=== PATIENT | male | born 1935 | race Caucasian/White ===

== ENCOUNTER 2020-07-02 15:40 | Emergency (ER) | payer MEDICARE, SELFPAY ==
--- NOTE | ~2020-07-02 | XR_ITS ---
EXAMINATION: XR humerus RT DATE: 07/02/2020 16:43 INDICATION: Right upper pain. TECHNIQUE: 2 views of right humerus were obtained. COMPARISON: None. FINDINGS: Bone alignment is normal. No fracture. There is mild osteoarthritis of glenohumeral joint a nd severe osteoarthritis of acromioclavicular joint. IMPRESSION: 1. Polyarticular osteoarthritis. Reviewed, dictated and finalized at location A.
--- NOTE | ~2020-07-02 | XR_ITS ---
EXAMINATION: XR elbow RT min 3V DATE: 07/02/2020 18:53 INDICATION: Right elbow pain. Fall. TECHNIQUE: 4 views of right elbow were obtained. COMPARISON: None. FINDINGS: Bone alignment is normal. No fracture. Joint spaces are normal. There is a small elbow join t effusion. There are enthesophytes at medial and lateral humeral epicondyles. There is posterior sof t tissue swelling. IMPRESSION: 1. Small elbow joint effusion. No fracture identified. Reviewed, dictated and finalized at location A.
[2020-07-02 16:23] VITALS: BP 148/77; PULSE 94; RESP 20; TEMP 37.1; O2SAT 99
[2020-07-02 18:19] VITALS: BP 139/88; PULSE 78; RESP 18; O2SAT 99
--- NOTE | 2020-07-02 19:09 | ED.GENADULT ---
HPI - General Adult General Chief complaint: Fall Stated complaint: FELL- R ARM PAIN Time Seen by Provider: 07/02/20 18:09 Source: patient Mode of arrival: ambulatory Limitations: no limitations History of Present Illness HPI narrative: Patient is an 85-year-old male who presents with family for evaluation of injuries sustained from a ground-level fall today patient was taking out the trash when he lost his balance falling to the ground patient sustained abrasion to the upper lip as well as to the right side of the face next to the eye patient denies any loss of consciousness syncope. Patient notes slight swelling and minimal discomfort of the right elbow distal humerus. Patient denies neck or back pain. Patient denies other injuries or complaints has not taken anything for pain. 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 Essential (primary) hypertension Mixed hyperlipidemia Primary osteoarthritis involving multiple joints Family History Family History (Updated 10/27/15 @ 23:19 by DOCTOR UNKNOWN) Sibling Family history of multiple sclerosis Patient's sister is Father Family history of diabetes mellitus in first degree relative Family history of type 2 diabetes mellitus Mother Patient's mother is Family history of heart disease in male family member before age 55 Other Diabetes mellitus Family history of allergic disorder Family history of kidney disease Family history of liver disease Hypertension Social History Social History Smoking status: Former smoker Alcohol intake: never Gender identity (if verbalized by the patient): Male Exam Narrative: Exam Narrative: GENERAL: Well-appearing, well-nourished, and in no acute distress. HEAD: Normocephalic, small abrasion to the right lateral orbital region as well as the upper lip EYES: PERRLA and EOMI. ENT: Nares clear, no rhinorrhea or epistaxis. Mucous membranes moist. Oropharynx without tonsillar hypertrophy exudate or other lesions. NECK: Supple. No adenopathy or masses. CHEST: Clear to auscultation. No respiratory distress. No wheezes rales or rhonchi HEART: Regular rate and rhythm. No murmur heard. Normal peripheral pulses. EXTREMITIES: Normal range of motion. No edema. Swelling of the posterior right elbow with minimal tenderness remainder of extremity nontender. No cervical thoracic or lumbar tenderness SKIN: Warm, dry, no rash. NEURO: No focal deficits. Alert and oriented x3. Cranial nerves II through XII grossly intact PSYCH: Normal mood and affect. Course Course Emergency Course: Patient in the room no distress aware of case findings treatment plan and diagnosis agreeing to follow-up as instructed or to return if symptoms worsen or concerns Vital Signs Vital signs: Vital Signs Temperature 98.8 F 07/02/20 16:23 Pulse Rate 94 07/02/20 16:23 Respiratory Rate 20 07/02/20 16:23 Blood Pressure 148/77 H 07/02/20 16:23 Pulse Oximetry 99 07/02/20 16:23 Temperature 98.8 F 07/02/20 16:23 Pulse Rate 78 07/02/20 18:19 Respiratory Rate 18 07/02/20 18:19 Blood Pressure 139/88 07/02/20 18:19 Pulse Oximetry 99 07/02/20 18:19 Medical Decision Making MDM Narrative Medical decision making narrative
== END 2020-07-02 19:25 | disposition home or self-care (01) ==
PROVIDERS: Emergency Provider Emergency Medicine; PCP Internal Medicine
DX: S50.01XA Contusion of right elbow, initial encounter (principal); S00.211A Abrasion of right eyelid and periocular area, initial encounter; S00.511A Abrasion of lip, initial encounter; I10 Essential (primary) hypertension; E78.2 Mixed hyperlipidemia; N40.0 Benign prostatic hyperplasia without lower urinary tract symptoms; M19.011 Primary osteoarthritis, right shoulder; Z87.891 Personal history of nicotine dependence; W18.39XA Other fall on same level, initial encounter
CPT/HCPCS: 73060; 73080; 99283

== ENCOUNTER → 2021-03-07 02:30 | Outpatient (CLI) | payer MEDICARE, SELFPAY ==
[2021-03-07 20:26] LABS: SARS-CoV-2 RNA PCR Negative
== END ==
PROVIDERS: PCP Internal Medicine; Visit Provider Internal Medicine
DX: R68.89 Other general symptoms and signs (principal); Z20.822 Contact with and (suspected) exposure to COVID-19
CPT/HCPCS: C9803; U0003; U0005

== ENCOUNTER 2022-04-03 08:15 | Outpatient (CLI) | payer MEDICARE, SELFPAY ==
--- NOTE | ~2022-04-03 | XR_ITS ---
Right Knee Technique: AP, lateral, and sunrise views were obtained. Clinical History: Pain Findings: No fracture or dislocation is seen. Osseous alignment is anatomic. Minimal tricompartmental degenerative spurring noted. Vascular calcifications noted. No joint effusion is seen. Impression: Minimal degenerative change, as above. No fracture or dislocation. Reviewed, dictated and finalized at location . ICATOR SPRAYER Impression: Minimal degenerative change, as above. No fracture or dislocation.
== END 2022-04-03 08:16 | disposition home or self-care (01) ==
PROVIDERS: PCP Internal Medicine; Visit Provider Nurse Practitioner Family
DX: M25.561 Pain in right knee (principal)
CPT/HCPCS: 73562

== ENCOUNTER 2022-04-23 07:05 | Emergency (ER) | payer MEDICARE, SELFPAY ==
--- NOTE | ~2022-04-23 | US_ITS ---
EXAMINATION: US venous doppler [facility] DATE: 04/23/2022 09:50 INDICATION: Right lower limb pain and bilateral lower limb swelling TECHNIQUE: Grayscale ultrasound images without and with compression and Doppler ultrasound images of the bilateral lower extremity veins were obtained. COMPARISON: None. FINDINGS: The visualized portions of right common femoral vein, profunda (deep) femoral vein, femoral vein, pop liteal vein, posterior tibial veins, gastrocnemius vein and greater saphenous vein outflow are patent . The visualized portions of left common femoral vein, profunda femoral vein, femoral vein, popliteal v ein, posterior tibial veins, gastrocnemius vein and greater saphenous vein outflow are patent. IMPRESSION: 1. No deep venous thrombosis in either lower limb. Reviewed, dictated and finalized at location L. EHOLD MANAGER
--- NOTE | ~2022-04-23 | XR_ITS ---
Left Hand Technique: PA, oblique, and lateral views were obtained. Clinical History: Pain and swelling, polymyalgia rheumatica Findings: No acute fracture or dislocation is seen. Osseous alignment is anatomic. There is mild dege nerative change at the first CMC joint. Suggestion of possible clubbing of the distal fingers. Impression: Mild degenerative change at the first CMC joint. Suggestion of clubbing of the distal fingers. Correlate with physical exam and clinical history. Reviewed, dictated and finalized at location . EQUIPMENT REPAIRER Impression: Mild degenerative change at the first CMC joint. Suggestion of clubbing of the distal fingers. Correlate with physical exam and clinical history.
--- NOTE | ~2022-04-23 | XR_ITS ---
EXAMINATION: XR hand RT min 3V DATE: 04/23/2022 09:38 INDICATION: Right hand pain and swelling. Polymyalgia rheumatica. TECHNIQUE: 3 views of right hand were obtained. COMPARISON: Right hand radiographs 01/22/2011 FINDINGS: Again seen is scapholunate dissociation. There is ulnar subluxation of second proximal phal anx with respect to the metacarpal. There is radial subluxation of third distal phalanx with respect to the middle phalanx. No fracture. There is severe osteoarthritis of radiolunate joint and moderate osteoarthritis of radioscaphoid joint. There is mild osteoarthritis of triscaphe joint and first carp ometacarpal joint. There is severe osteoarthritis of first-third metacarpophalangeal joints. There is osteoarthritis of most of the interphalangeal joints, severe at third distal interphalangeal joint a nd moderate at fourth distal interphalangeal joint and fifth proximal and distal interphalangeal join ts. There is soft tissue swelling of the hand and fingers. IMPRESSION: 1. Polyarticular osteoarthritis. No specific evidence of inflammatory arthropathy. 2. Scapholunate dissociation. Reviewed, dictated and finalized at location A. ER HELPER IMPRESSION: 1. Polyarticular osteoarthritis. No specific evidence of inflammatory arthropat hy. 2. Scapholunate dissociation.
[2022-04-23 07:26] VITALS: BP 153/79; PULSE 72; RESP 15; TEMP 36.5; O2SAT 96
--- NOTE | 2022-04-23 09:25 | ED.EXTPRO ---
HPI - Extremity Problem General Chief complaint: Extremity Problem,Nontraumatic Stated complaint: hands swelled up, knee is swelled up x 3 weeks Time Seen by Provider: 04/23/22 08:55 Source: patient and old records reviewed Mode of arrival: ambulatory Limitations: no limitations History of Present Illness HPI Narrative: Patient is an 86 y/o male who presents to the ED with c/o swelling to his hands and legs. Patient reports having swelling in his bilateral hands and bilateral lower extremities, worse in R leg, for the past 3 weeks. He states the swelling is present nearly every morning and last throughout the day, but does seem mildly improved by the end of the day. He complains of some intermittent pain in his hands and right knee, as well as intermittent redness and warmth to his hands. He has been taking Tylenol with some relief of the pain. He saw his primary care doctor at the start of symptoms and had a negative x-ray of his right knee. Records reviewed. Patient denies any chest pain, difficulty breathing, calf pain, history of heart failure or gout, recent injury, fevers. Patient notes a Hx of polymyalgia rheumatica 30 years ago. Related Data Home Medications Medication Instructions Recorded Confirmed cholecalciferol (vitamin D3) 10 400 unit PO DAILY 02/05/19 04/02/22 mcg (400 unit) capsule multivitamin 1 tablet PO DAILY 03/16/21 04/02/22 tamsulosin 0.4 mg capsule 0.4 mg PO DAILY 03/16/21 04/02/22 vit cap PO 03/16/21 04/02/22 C,E,zinc,Vg-fwyph-3-lutein-zeaxanthin 250 mg-2.5 mg-0.5 mg capsule Allergies Allergy/AdvReac Type Severity Reaction Status Date / Time ibuprofen Allergy Unknown Inside of Verified 04/23/22 07:39 mouth turn red Review of Systems Review of Systems: CONSTITUTIONAL: Denies fever, chills, or sweats. CARDIOVASCULAR: Denies chest pain. RESPIRATORY: Denies dyspnea. GASTROINTESTINAL: Denies abdominal pain, nausea, vomiting, or diarrhea. SKIN: See HPI. MUSCULOSKELETAL: See HPI. NEUROLOGIC: Denies headache, numbness, or weakness. 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 Surgical History Surgical History No pertinent past surgical history Family History Family History Sibling Family history of multiple sclerosis Patient's sister is Father Family history of diabetes mellitus in first degree relative Family history of type 2 diabetes mellitus Mother Patient's mother is Family history of heart disease in male family member before age 55 Other Diabetes mellitus Family history of allergic disorder Family history of kidney disease Family history of liver disease Hypertension Social History Social History Smoking packs per day: 1 Smoking cigarettes per day: 20.0 Years smoked: 4 Smoking pack-years: 4.00 Smoking status: Former smoker Second hand tobacco smoke exposure: No Smoking end date: 03/31/1957 Alcohol intake: never Substance use: never Substance use type: does not use Lack of Transportation: YES Lack of Food: Never True Current Housing: I Have Housing Concerned About Future Housing: No Difficulty Paying Gas/Electric Bills: No Difficulty Paying for Meds: No Currently Unemployed: No Education: High School Diploma/GED Difficulty w/ Childcare or Family Care: No Gender identity (if verbalized by the patient): Male Exam Narrative: GENERAL: Elderly, well-nourished, non-toxic, in no acute distress.
[2022-04-23 10:21] LABS: Basophils Absolute Auto 0.1 K/mm3 (0.0-0.1); Basophils Percent Auto 0.4 % (0.2-1.2); Eosinophils Absolute Auto 0.2 K/mm3 (0-0.3); Eosinophils Percent Auto 1.2 % (0-4.4); Hematocrit 39.4 % (42.0-52.0); Hemoglobin 12.5 g/dL (14.0-18.0); Immature Granulocyte Absolute 0.06 K/mm3 (0.00-0.031); Immature Granulocyte Percent A 0.4 % (0-0.5); Lymphocytes Absolute Auto 1.07 K/mm3 (0.9-3.2); Lymphocytes Percent Auto 7.4 % (18.3-44.2); Mean Corpuscular HGB Conc 31.7 g/dl (32-36); Mean Corpuscular Hemoglobin 30.9 pg (26-34); Mean Corpuscular Volume 97.5 fl (80-100); Mean Platelet Volume 9.8 fl (7.4-10.4); Monocytes Absolute Auto 0.9 K/mm3 (0.1-0.6); Monocytes Percent Auto 6.2 % (2.6-8.5); Neutrophils Absolute Auto 12.2 K/mm3 (1.3-6.7); Neutrophils Percent Auto 84.4 % (45.5-73.1); Platelet Count Result 225 k/mm3 (150-375); Red Blood Count 4.04 M/mm3 (4.6-6.20); Red Cell Distribution Width 15.3 % (11.5-14.5); White Blood Count 14.5 K/mm3 (4.5-10.0)
[2022-04-23 10:23] LABS: Appearance Urine Clear (Clear); Bilirubin Urine Negative (Negative); Blood Urine Negative (Negative); Color Urine Yellow (Yellow); Glucose Urine UA Negative (Negative); Ketones Urine Trace mg/dL (Negative); Leukocyte Esterase Ur Negative LEU/UL (Negative); Nitrate Urine Negative (Negative); Protein Urine 1+ mg/dL (Negative); Specific Grav Ur 1.025 (1.001-1.035); Urobilinogen Urine 0.2 mg/dL (<2.0); pH Urine 5.5 (5.0-9.0)
[2022-04-23 10:24] LABS: Alanine Aminotransferase 40 U/L (6-50); Albumin Level 3.8 g/dL (3.5-5.1); Alkaline Phosphatase 98 U/L (38-126); Anion Gap 8 mmol/L (8-16); Aspartate Amino Transferase 43 U/L (17-59); Bilirubin,Total 0.6 mg/dL (0.2-1.3); Blood Urea Nitrogen 31 mg/dL (9-20); CRP 1.7 mg/dL (<1.0); Calcium 8.7 mg/dL (8.4-10.2); Carbon Dioxide 25 mmol/L (22-30); Chloride 109 mmol/L (98-107); Estimated CRCL calculation 31 ml/min; Estimated Glomerular Filt Rate 52; Glucose 87 mg/dL (65-110); Potassium 4.5 mmol/L (3.4-5.0); Sodium 142 mmol/L (137-145)
[2022-04-23 10:30] LABS: Bacteria Urine Trace /hpf; Mucus Urine Rare /lpf; NT Pro B Type Natriuretic Pept 453 pg/mL (19.9-100); Squamous Epithelial Cell Urine Rare /hpf (Few); WBC Urine 0-3 /hpf
[2022-04-23 10:33] LABS: Add Urine Microscopic? YES
[2022-04-23 12:11] LABS: Erythrocyte Sedimentation Rate 57 mm/hr (0-20)
== END 2022-04-23 14:11 | disposition home or self-care (01) ==
PROVIDERS: Emergency Provider Physician Assistant; PCP Internal Medicine
DX: M79.89 Other specified soft tissue disorders (principal); M19.031 Primary osteoarthritis, right wrist; M18.9 Osteoarthritis of first carpometacarpal joint, unspecified; M19.041 Primary osteoarthritis, right hand; E78.2 Mixed hyperlipidemia; M35.3 Polymyalgia rheumatica; N40.0 Benign prostatic hyperplasia without lower urinary tract symptoms; Z86.16 Personal history of COVID-19; Z87.891 Personal history of nicotine dependence; M24.232 Disorder of ligament, left wrist
CPT/HCPCS: 36415; 73130; 80053; 81001; 83880; 85025; 85652; 86140; 93970; 99284

== ENCOUNTER 2022-09-12 14:14 | Outpatient (CLI) | payer MEDICARE, SELFPAY ==
[2022-09-12 14:43] LABS: Hematocrit 35.3 % (42.0-52.0); Hemoglobin 11.2 g/dL (14.0-18.0); Mean Corpuscular HGB Conc 31.7 g/dl (32-36); Mean Corpuscular Hemoglobin 30.4 pg (26-34); Mean Corpuscular Volume 95.9 fl (80-100); Mean Platelet Volume 9.4 fl (7.4-10.4); Platelet Count Result 270 k/mm3 (150-375); Red Blood Count 3.68 M/mm3 (4.6-6.20); Red Cell Distribution Width 15.7 % (11.5-14.5); White Blood Count 14.5 K/mm3 (4.5-10.0)
[2022-09-12 14:48] LABS: Appearance Urine Clear (Clear); Bacteria Urine None Seen /hpf; Bilirubin Urine Negative (Negative); Blood Urine Negative (Negative); Color Urine Dark Yellow (Yellow); Glucose Urine UA Negative (Negative); Ketones Urine Trace mg/dL (Negative); Leukocyte Esterase Ur Trace LEU/UL (Negative); Nitrate Urine Negative (Negative); Protein Urine 1+ mg/dL (Negative); RBC Urine 0-2 /hpf (0-2); Specific Grav Ur 1.026 (1.001-1.035); Squamous Epithelial Cell Urine Occasional /hpf (Few); WBC Urine 0-5 /hpf; pH Urine 5.5 (5.0-9.0)
[2022-09-12 15:07] LABS: Alanine Aminotransferase 35 U/L (6-50); Albumin Level 3.8 g/dL (3.5-5.1); Alkaline Phosphatase 82 U/L (38-126); Anion Gap 6 mmol/L (8-16); Aspartate Amino Transferase 39 U/L (17-59); Bilirubin,Total 0.4 mg/dL (0.2-1.3); Blood Urea Nitrogen 36 mg/dL (9-20); CRP 4.1 mg/dL (<1.0); Calcium 8.4 mg/dL (8.4-10.2); Carbon Dioxide 28 mmol/L (22-30); Chloride 110 mmol/L (98-107); Estimated Glomerular Filt Rate 48; Glucose 116 mg/dL (65-110); Potassium 4.3 mmol/L (3.4-5.0); Sodium 144 mmol/L (137-145)
[2022-09-12 15:57] LABS: Add Urine Microscopic? YES
[2022-09-12 16:48] LABS: Erythrocyte Sedimentation Rate 63 mm/hr (0-20)
[2022-09-18 20:37] LABS: Hexagonal Phase Confirm Negative (Negative); Lupus dRVVT Confirmation Negative (Negative); Lupus dRVVT Screen 51 sec (<=45); PTT-LA Screen 41 sec (<=40)
[2022-09-23 14:26] LABS: Lupus dRVVT Additional Testing Yes
== END 2022-09-12 14:15 | disposition home or self-care (01) ==
LOC: ANHLAB 14:19
PROVIDERS: PCP Family Medicine; Visit Provider Internal Medicine
DX: R06.02 Shortness of breath (principal); M19.90 Unspecified osteoarthritis, unspecified site; R89.9 Unspecified abnormal finding in specimens from other organs, systems and tissues
CPT/HCPCS: 36415; 80053; 81001; 85027; 85597; 85598; 85613; 85652; 85730; 86140

== ENCOUNTER 2022-09-19 08:24 | Outpatient (CLI) | payer MEDICARE, SELFPAY ==
--- NOTE | ~2022-09-19 | XR_ITS ---
XR chest 2V 09/19/2022 10:41 Indication: Shortness of breath Procedure: PA and lateral views of the chest Comparison: 11/30/2012 Findings: Borderline heart size. There is a hiatal hernia. No focal air space disease, pulmonary mary jo a, pleural effusion or suspected pneumothorax. Moderate thoracic spondylosis with accentuated kyphosi s of the lower thoracic spine. There is dextroscoliosis of the thoracic spine. Calcified granuloma le ft upper thorax. Impression: 1: No acute cardiopulmonary disease. Reviewed, dictated and finalized at location L. Impression: 1: No acute cardiopulmonary disease.
--- NOTE | ~2022-09-19 | MR_ITS ---
MRI of the right hand CLINICAL HISTORY: Rheumatoid arthritis TECHNIQUE: Coronal T1-weighted and T2 fat-sat images, axial T1-weighted, T1 fat-sat, and T2 fat-sat i mages, and sagittal T1-weighted and T2 fat-sat images were performed. Following intravenous administr ation of 15 cc MultiHance gadolinium, T1-weighted fat-sat imaging was performed in the axial, coronal , and sagittal planes. FINDINGS: Exam is suboptimal as the fat suppression failed on the fat-suppressed sequences. There are probable scattered erosive changes throughout the carpal bones in the wrist, probable exten sive enhancing synovitis of the wrist. There is advanced osteoarthritic change of the first metacarpo phalangeal joint. There are mild osteoarthritic changes of the second and third metacarpophalangeal j oints and first carpal metacarpal joint. Flexor and extensor tendons are intact. Probable tenosynovitis of the flexor pollicis longus tendon a nd the flexor digitorum profundus tendons in the palm/wrist region. There is dorsal subcutaneous soft tissue edema in the hand. There is probable widening is stable inte rval to 7 mm, compatible with underlying scapholunate ligament tear. IMPRESSION: Suboptimal exam due to failure of fat suppression. Findings consistent with inflammatory/erosive arthropathy throughout the wrist, consistent with histo ry of rheumatoid arthritis. Advanced osteoarthritis of the first metacarpophalangeal joint. Additional mild degenerative osteoart hritic changes, as detailed above. Tenosynovitis of the flexor pollicis longus tendon and flexor digitorum profundus tendons, as detaile d above. Widening of the scapholunate interval is consistent with underlying scapholunate ligament tear. Reviewed, dictated and finalized at [facility]. IMPRESSION: Suboptimal exam due to failure of fat suppression. Findings consistent with inflammatory/erosive arthropathy throughout the wrist, consistent with history of rheumatoid arthritis. Advanced osteoarthritis of the first metacarpophalangeal joint. Additional mild degenerative osteoarthritic changes, as detailed above. Tenosynovitis of the flexor pollicis longus tendon and flexor digitorum profund us tendons, as detailed above. Widening of the scapholunate interval is consistent with underlying scapholunat e ligament tear.
--- NOTE | ~2022-09-19 | MR_ITS ---
MRI of the left hand CLINICAL HISTORY: Rheumatoid arthritis TECHNIQUE: Coronal T1-weighted and T2 fat-sat images, axial T1-weighted, T1 fat-sat, and T2 fat-sat i mages, and sagittal T1-weighted and T2 fat-sat images were performed. Following intravenous administr ation of 15 cc MultiHance gadolinium, T1-weighted fat-sat imaging was performed in the axial, coronal , and sagittal planes. FINDINGS: Multiple erosions are noted in the carpal bones, especially involving the scaphoid, capitat e, hamate, and triquetrum. There is patchy marrow edema throughout the bones of the wrist on fluid se nsitive sequences. There is also probable focal erosive change at the distal radius. There is moderate to advanced osteoarthritis of the first carpometacarpal joint. There is joint space narrowing and bony productive change at the second metacarpophalangeal joint, without definite erosi ons, most compatible with moderate to advanced osteoarthritis. Remaining joint spaces and the hand itself appear intact. Remaining bone marrow signals are unremarka ble. There is subcutaneous soft tissue edema throughout the dorsum of the hand, nonspecific. No focal flui d collection evident. Flexor and extensor tendons appear intact. There is fluid distention of the fle xor pollicis longus tendons and flexor digitorum profundus tendons in the palm, compatible with tenos ynovitis. There is additional probable tenosynovitis of the carpal tunnel region, with focal fluid, p artially imaged. Postcontrast images demonstrate extensive enhancing synovitis throughout the wrist. There is widening of the scapholunate interval to 7 mm, suggestive of underlying scapholunate ligamen t tear. IMPRESSION: Inflammatory/erosive arthropathy changes throughout the wrist, consistent with rheumatoid arthritis. Please see details above. Severe osteoarthritis of the first carpal metacarpal joint, and moderate to advanced osteoarthritis o f the second MCP joint. Tenosynovitis involving the flexor pollicis longus tendon and flexor digitorum profundus tendons, as detailed above. Widening of the scapholunate interval is consistent with underlying scapholunate ligament tear. Reviewed, dictated and finalized at location M. IMPRESSION: Inflammatory/erosive arthropathy changes throughout the wrist, consistent with rheumatoid arthritis. Please see details above. Severe osteoarthritis of the first carpal metacarpal joint, and moderate to adv anced osteoarthritis of the second MCP joint. Tenosynovitis involving the flexor pollicis longus tendon and flexor digitorum profundus tendons, as detailed above. Widening of the scapholunate interval is consistent with underlying scapholunat e ligament tear.
== END 2022-09-19 08:25 | disposition home or self-care (01) ==
PROVIDERS: PCP Family Medicine; Visit Provider Internal Medicine
DX: R06.02 Shortness of breath (principal); M06.041 Rheumatoid arthritis without rheumatoid factor, right hand; M06.042 Rheumatoid arthritis without rheumatoid factor, left hand; M19.90 Unspecified osteoarthritis, unspecified site; M19.041 Primary osteoarthritis, right hand; M19.042 Primary osteoarthritis, left hand
CPT/HCPCS: 71046; 73220; A9577

== ENCOUNTER 2022-10-14 10:38 | Outpatient (CLI) | payer MEDICARE, SELFPAY ==
[2022-10-14 12:02] LABS: Hepatitis B Surface Antigen Negative (Negative)
[2022-10-14 12:19] LABS: Hepatitis B Surface Anti Res Negative; Hepatitis C Virus Antibody Negative (Negative)
[2022-10-16 10:49] LABS: NIL 0.01 IU/mL; Quantiferon TB Plus, 1T NEGATIVE (NEGATIVE); TB2-NIL 0.02 IU/mL
== END 2022-10-14 10:39 | disposition home or self-care (01) ==
PROVIDERS: PCP Family Medicine; Visit Provider Internal Medicine
DX: M05.79 Rheumatoid arthritis with rheumatoid factor of multiple sites without organ or systems involvement (principal)
CPT/HCPCS: 36415; 86480; 86706; 86803; 87340

== ENCOUNTER 2022-10-23 13:53 | Outpatient (CLI) | payer MEDICARE, SELFPAY ==
[2022-10-23 15:15] LABS: Hematocrit 34.5 % (42.0-52.0); Hemoglobin 10.8 g/dL (14.0-18.0); Mean Corpuscular HGB Conc 31.3 g/dl (32-36); Mean Corpuscular Hemoglobin 29.7 pg (26-34); Mean Corpuscular Volume 94.8 fl (80-100); Mean Platelet Volume 9.7 fl (7.4-10.4); Platelet Count Result 271 k/mm3 (150-375); Red Blood Count 3.64 M/mm3 (4.6-6.20); Red Cell Distribution Width 16.3 % (11.5-14.5); White Blood Count 15.9 K/mm3 (4.5-10.0)
[2022-10-23 15:54] LABS: Iron 47 ug/dL (49-181)
[2022-10-23 16:03] LABS: Percent Iron Saturation 15 % (20-50)
== END 2022-10-23 13:54 | disposition home or self-care (01) ==
PROVIDERS: PCP Family Medicine; Visit Provider Family Medicine
DX: D64.9 Anemia, unspecified (principal); H35.3190 Nonexudative age-related macular degeneration, unspecified eye, stage unspecified; I10 Essential (primary) hypertension; M05.79 Rheumatoid arthritis with rheumatoid factor of multiple sites without organ or systems involvement; R06.02 Shortness of breath; R31.21 Asymptomatic microscopic hematuria; E78.5 Hyperlipidemia, unspecified
CPT/HCPCS: 36415; 82607; 83540; 83550; 84443; 85027

== ENCOUNTER 2022-10-24 07:55 | Outpatient (CLI) | payer MEDICARE, SELFPAY ==
[2022-10-24 08:44] LABS: IFOB Positive Control Positive; Immunochemical Fecal Occult Bl Positive (N)
== END 2022-10-24 07:56 | disposition home or self-care (01) ==
LOC: ANHLAB 07:58
PROVIDERS: PCP Family Medicine; Visit Provider Family Medicine
DX: R31.21 Asymptomatic microscopic hematuria (principal)
CPT/HCPCS: 82274

== ENCOUNTER 2022-10-29 12:05 | Emergency (ER) | payer MEDICARE, SELFPAY ==
[2022-10-29] VITALS (12 sets, daily range): BP systolic 111–151; BP diastolic 69–79; PULSE 58–96; RESP 17–27; TEMP 36.7–36.9; O2SAT 97–100
--- NOTE | ~2022-10-29 | XR_ITS ---
EXAMINATION: XR chest 2V DATE: 10/29/2022 12:32 INDICATION: Arrhythmia. Shortness of breath. TECHNIQUE: Frontal and lateral views of the chest were obtained. COMPARISON: Chest 2 views 09/19/2022, CT abdomen and pelvis 04/08/2013 FINDINGS: A calcified left lung nodule is consistent with old granulomatous disease. There is mild at electasis versus scarring at the lung bases. No pleural effusion or pneumothorax. Cardiomegaly is not ed. Surgical clips in the right upper quadrant are likely from cholecystectomy. IMPRESSION: 1. Mild atelectasis versus scarring at the lung bases. 2. Cardiomegaly. Reviewed, dictated and finalized at location A.
--- NOTE | ~2022-10-29 | US_ITS ---
EXAMINATION: US venous doppler [facility] DATE: 10/29/2022 14:03 INDICATION: swelling, dyspnea . TECHNIQUE: Grayscale images without and with compression and Doppler images of the bilateral lower ex tremity veins were obtained. COMPARISON: 04/23/2022 FINDINGS: The right common femoral vein, profunda (deep) femoral vein, femoral vein, popliteal vein, peroneal v ein, posterior tibial veins, gastrocnemius vein, and greater saphenous vein are patent. The left common femoral vein, profunda (deep) femoral vein, femoral vein, popliteal vein, peroneal v ein, posterior tibial veins, gastrocnemius vein, and greater saphenous vein are patent. IMPRESSION: 1. Patent bilateral lower extremity veins. No evidence of deep venous thrombosis. Reviewed, dictated and finalized at location K. IMPRESSION: 1. Patent bilateral lower extremity veins. No evidence of deep venous thrombos is.
--- NOTE | 2022-10-29 12:07 | ECG_ITS ---
Measurements Intervals [place] Rate: 82 P: [place]: 0 QRS: -29 QRSD: 117 T: 63 QT: 385 QTc: 450 Interpretive Statements NORMAL SINUS RHYTHM FIRST-DEGREE AV BLOCK RUN OF SVT NOTED BORDERLINE LEFT AXIS DEVIATION [QRS AXIS < -20] INCOMPLETE RIGHT BUNDLE BRANCH BLOCK [90+ ms QRS DURATION, TERMINAL R IN V1/V2, 40+ ms S IN I/aVL/V4/V5/V6] NONSPECIFIC T-WAVE ABNORMALITY ABNORMAL RHYTHM ECG NO PREVIOUS ECG AVAILABLE FOR COMPARISON Electronically Signed On 10-29-2022 13:52:43 CDT by Chula Esparza M.D.
[2022-10-29 12:32] LABS: Basophils Percent Auto 0.3 % (0.2-1.2); Eosinophils Absolute Auto 0.2 K/mm3 (0-0.3); Eosinophils Percent Auto 1.2 % (0-4.4); Hematocrit 32.4 % (42.0-52.0); Hemoglobin 10.2 g/dL (14.0-18.0); Immature Granulocyte Absolute 0.08 K/mm3 (0.00-0.031); Immature Granulocyte Percent A 0.5 % (0-0.5); Lymphocytes Absolute Auto 1.13 K/mm3 (0.9-3.2); Lymphocytes Percent Auto 7.7 % (18.3-44.2); Mean Corpuscular HGB Conc 31.5 g/dl (32-36); Mean Corpuscular Hemoglobin 29.2 pg (26-34); Mean Corpuscular Volume 92.8 fl (80-100); Mean Platelet Volume 9.5 fl (7.4-10.4); Monocytes Absolute Auto 1.1 K/mm3 (0.1-0.6); Monocytes Percent Auto 7.4 % (2.6-8.5); Neutrophils Absolute Auto 12.2 K/mm3 (1.3-6.7); Neutrophils Percent Auto 82.9 % (45.5-73.1); Platelet Count Result 237 k/mm3 (150-375); Red Blood Count 3.49 M/mm3 (4.6-6.20); Red Cell Distribution Width 16.8 % (11.5-14.5); White Blood Count 14.7 K/mm3 (4.5-10.0)
[2022-10-29 12:42] LABS: Alanine Aminotransferase 49 U/L (6-50); Albumin Level 3.6 g/dL (3.5-5.1); Alkaline Phosphatase 91 U/L (38-126); Anion Gap 7 mmol/L (8-16); Aspartate Amino Transferase 50 U/L (17-59); Bilirubin,Total 0.3 mg/dL (0.2-1.3); Blood Urea Nitrogen 40 mg/dL (9-20); Calcium 8.6 mg/dL (8.4-10.2); Carbon Dioxide 25 mmol/L (22-30); Chloride 110 mmol/L (98-107); Estimated CRCL calculation 27 ml/min; Estimated Glomerular Filt Rate 44; Glucose 96 mg/dL (65-110); INR 1.1; Lipase 55 U/L (23-300); Potassium 4.5 mmol/L (3.4-5.0); Prothrombin Time 14.7 Seconds (11.1-14.7); Sodium 142 mmol/L (137-145)
[2022-10-29 12:43] LABS: Partial Thromboplastin Time 34.5 SECONDS (22.3-36.8)
[2022-10-29] MEDS: ASPIRIN 81 MG CHEWABLE TABLET 324 MG PO (12:50)
[2022-10-29 12:53] LABS: Troponin I < 0.012 ng/mL (0.000-0.034)
--- NOTE | 2022-10-29 13:17 | ED.ARRPALP ---
HPI - Arrhythmia/Palpitations General Chief Complaint: Arrhythmia/Palpitations Stated Complaint: irregular heart rate Time Seen by Provider: 10/29/22 12:49 Source: patient Mode of arrival: ambulatory Limitations: no limitations History of Present Illness HPI narrative: This is a 87 year old male that presents to the ER for irregular heart rhythm. Reports he was about to get an infusion for his rheumatoid arthritis. The nurse noted his heart was beating irregular and they told him he should go to the ER. He has no known history of atrial fibrillation. He does report shortness of breath and weakness that has been ongoing for several months. Reports some lower extremity edema. Denies chest pain. Related Data Home Medications Medication Instructions Recorded Confirmed cholecalciferol (vitamin D3) 10 400 unit PO DAILY 02/05/19 09/12/22 mcg (400 unit) capsule multivitamin 1 tablet PO DAILY 03/16/21 09/12/22 tamsulosin 0.4 mg capsule 0.4 mg PO DAILY 03/16/21 09/12/22 Allergies Allergy/AdvReac Type Severity Reaction Status Date / Time ibuprofen Allergy Unknown Inside of Verified 10/29/22 12:50 mouth turn red Review of Systems Review of Systems: CONSTITUTIONAL: Denies fever CARDIOVASCULAR: Denies chest pain, palpitations, or edema. RESPIRATORY: Reports dyspnea. Denies cough NEUROLOGIC: Reports generalized weakness. 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 Shortness of breath Surgical History Surgical History No pertinent past surgical history Family History Family History Sibling Family history of multiple sclerosis Patient's sister is Father Family history of diabetes mellitus in first degree relative Family history of type 2 diabetes mellitus Mother Patient's mother is Family history of heart disease in male family member before age 55 Other Diabetes mellitus Family history of allergic disorder Family history of kidney disease Family history of liver disease Hypertension Social History Social History Smoking packs per day: 1 Smoking cigarettes per day: 20.0 Years smoked: 4 Smoking pack-years: 4.00 Smoking status: Former smoker Second hand tobacco smoke exposure: No Smoking end date: 03/31/1957 Alcohol intake: never Substance use: never Substance use type: does not use Lack of Transportation: YES Lack of Food: Never True Current Housing: I Have Housing Concerned About Future Housing: No Difficulty Paying Gas/Electric Bills: No Difficulty Paying for Meds: No Currently Unemployed: No Education: High School Diploma/GED Difficulty w/ Childcare or Family Care: No Living arrangements: with family Occupation/Education: retired Gender identity (if verbalized by the patient): Male Sexual Orientation (if Verbalized by the Patient): Straight or Heterosexual Exam Narrative: GENERAL: Elderly, well-nourished, and in no acute distress. HEAD: Normocephalic, atraumatic. EYES: EOMI. ENT: Nares clear, no rhinorrhea or epistaxis. Mucous membranes moist. Oropharynx without tonsillar hypertrophy exudate or other lesions. Bilateral TMs pearly pimentel non-bulging NECK: Supple. No adenopathy or masses. No JVD CHEST: Clear to auscultation. No respiratory distress. No wheezes rales or rhonchi HEART: Regular rate and rhythm. No murmur heard. Normal periphera
[2022-10-29 13:36] LABS: NT Pro B Type Natriuretic Pept 1280 pg/mL (19.9-100)
--- NOTE | 2022-10-29 14:20 | ECG_ITS ---
Measurements Intervals [place] Rate: 84 P: [place]: 0 QRS: -34 QRSD: 113 T: 60 QT: 403 QTc: 479 Interpretive Statements SINUS RHYTHM WITH FIRST-DEGREE AV BLOCK MARKED LEFT AXIS DEVIATION [QRS AXIS < -30] INCOMPLETE RIGHT BUNDLE BRANCH BLOCK [90+ ms QRS DURATION, TERMINAL R IN V1/V2, 40+ ms S IN I/aVL/V4/V5/V6] COMPARED TO ECG 10/29/2022 12:14:01 NO SIGNIFICANT DIFFERENCE, BLOCKED PACS ARE NOT SEEN Electronically Signed On 10-30-2022 7:41:23 CDT by Dave Fu M.D.
[2022-10-29 15:42] LABS: Troponin I < 0.012 ng/mL (0.000-0.034)
[2022-10-29] MEDS: FUROSEMIDE 20 MG TABLET PO (17:23)
[2022-10-29 19:18] LABS: Troponin I < 0.012 ng/mL (0.000-0.034)
== END 2022-10-29 19:23 | disposition home or self-care (01) ==
PROVIDERS: Emergency Medicine; Emergency Provider Physician Assistant; PCP Family Medicine
DX: R60.0 Localized edema (principal); M06.9 Rheumatoid arthritis, unspecified; R06.02 Shortness of breath; I10 Essential (primary) hypertension; E78.2 Mixed hyperlipidemia; Z87.891 Personal history of nicotine dependence
CPT/HCPCS: 36415; 71046; 80053; 83690; 83880; 84484; 85025; 85610; 85730; 93005; 93970; 99203; 99284; A9270; G0463

== ENCOUNTER 2022-11-11 10:13 | Outpatient (CLI) | payer MEDICARE, SELFPAY ==
--- NOTE | 2022-11-14 12:18 | WPDHOLTEREM ---
Holter/Event Monitor Holter/Event Monitor Date of procedure: 11/11/22 Holter/Event Procedure: 48 Hr Holter Monitor Indications: Cardiac arrhythmia Conclusion: 1. 48 hour holter monitor on 11/11/22. 2. Predominant rhythm is sinus or ectopic atrial rhythm. HR range 42-100 bpm; average HR 76 bpm. HR at 42 bpm was at 04:28. 3. There are no other supraventricular arrhythmias. 4. There are 13,410 premature ventricular complexes, 2,334 ventricular couplets, 286 ventricular triplets, 1,123 ventricular bigeminy and 1,003 ventricular trigeminy. There are 36 episodes of ventricular tachycardia, fastest at 141 bpm and longest lasting 7 beats. 5. The longest pause is 2.1 seconds at 08:29. 6. No symptoms available for correlation.
== END 2022-11-11 10:14 | disposition home or self-care (01) ==
LOC: ANHCARD 10:15
PROVIDERS: PCP Nurse Practitioner; Visit Provider Nurse Practitioner
DX: I49.9 Cardiac arrhythmia, unspecified (principal)
CPT/HCPCS: 93225; 93226

== ENCOUNTER 2022-12-11 14:33 | Outpatient (CLI) | payer MEDICARE, SELFPAY ==
--- NOTE | 2022-12-11 14:36 | ECHO_ITS ---
Patient Info Name: Js Donovan Age: 87 years : 1935 Gender: Male Ht: 64 in Wt: 160 lbs BSA: 1.83 m2 HR: 63 bpm BP: 141 / 85 mmHg Heart Rhythm: Sinus Rhythm Technical Quality: Fair Exam Date: 12/11/2022 2:45 PM Exam Location: [facility] Pulmonary Patient Status: Outpatient Admit Date: 12/11/2022 Staff Ordering Physician: Suzan Marie APRN Wire Dropper: Germaine Dang RDCS Attending Provider: Suzan Marie APRN Referring Physician: Derek MALONE Exam Type: CA echo doppler color flow Study Info Indications R06.02 - Shortness of breath Complete two-dimensional, color flow and Doppler transthoracic echocardiogram is performed. Summary 1. Complete two-dimensional, color flow and Doppler transthoracic echocardiogram is performed. 2. Left ventricular chamber dimension is normal. 3. Left ventricular systolic function is normal, estimated at 60-65%. 4. There is moderate concentric increased left ventricular wall thickness. 5. The left ventricular diastolic function is grade II diastolic dysfunction. 6. E/e' 13 is mildly elevated. 7. Left atrial chamber dimension is moderately enlarged. 8. Right atrial chamber dimension is moderately enlarged. 9. There is mild aortic valve sclerosis. 10. There is mild to moderate aortic valve regurgitation. 11. There is mild mitral valve regurgitation. 12. There is trace tricuspid valve regurgitation. 13. No pulmonary hypertension, estimated pulmonary arterial systolic pressure is 35 mmHg. Left Ventricle E/e' 13 is mildly elevated. Left ventricular chamber dimension is normal. Left ventricular systolic function is normal, estimated at 60-65%. There is moderate concentric increased left ventricular wall thickness. The left ventricular diastolic function is grade II diastolic dysfunction. Right Ventricle Right ventricular systolic function is normal and with normal TAPSE 1.8 cm. Right ventricular chamber dimension is normal. Left Atria Left atrial chamber dimension is moderately enlarged. Right Atria Right atrial chamber dimension is moderately enlarged. Aortic Valve The aortic valve is trileaflet. There is mild aortic valve sclerosis. There is no aortic valve stenosis. There is mild to moderate aortic valve regurgitation. Pulmonic Valve There is no pulmonic regurgitation. Mitral Valve There is no mitral valve stenosis. There is mild mitral valve regurgitation. Tricuspid Valve There is trace tricuspid valve regurgitation. No pulmonary hypertension, estimated pulmonary arterial systolic pressure is 35 mmHg. Pericardium/Pleural There is no pericardial effusion. Inferior Vena Cava Normal inferior vena cava with >50% collapse upon inspiration consistent with normal right atrial pressure, 5 mmHg. Aorta The aortic root size at the sinus of Valsalva is normal. Left Ventricular Outflow Tract Name Value Normal LVOT 2D LVOT Diameter 2.2 cm LVOT Doppler LVOT Peak Gradient 6 mmHg LVOT Mean Gradient 2 mmHg LVOT VTI 26 cm LVOT VTI/AV VTI Ratio 0.7 LVOT Stroke Volume 94 ml LVOT CO
== END 2022-12-11 14:34 | disposition home or self-care (01) ==
LOC: ANHCARD 14:34
PROVIDERS: PCP Nurse Practitioner; Visit Provider Nurse Practitioner Family
DX: R06.02 Shortness of breath (principal); I34.0 Nonrheumatic mitral (valve) insufficiency; I35.1 Nonrheumatic aortic (valve) insufficiency
CPT/HCPCS: 93306

== ENCOUNTER 2023-01-02 09:53 | Outpatient (CLI) | payer MEDICARE, SELFPAY ==
--- NOTE | ~2023-01-02 | NM_ITS ---
EXAMINATION: NM nat stress w perfusion DATE: 01/02/2023 12:49 INDICATION: Dyspnea on exertion TECHNIQUE: Rest images were obtained following intravenous administration of 8.6 mCi Tc99m tetrofosmi n (Myoview). The patient was infused intravenously with Lexiscan (Regadenoson). Then, 29.9 mCi Tc99m tetrofosmin (Myoview) was administered intravenously, and stress images were obtained. Data was recon structed into short axis and horizontal and vertical long axis SPECT images. Gated SPECT images were also obtained. COMPARISON: None. FINDINGS: There is no definite reversible or fixed perfusion abnormality to suggest ischemia or infar ction. There is normal left ventricular chamber size, wall motion and ejection fraction. Left ventr icular ejection fraction measures 66%. IMPRESSION: 1. Normal myocardial perfusion at rest and during stress. 2. Left ventricular ejection fraction measuring 66%. Reviewed, dictated and finalized at location A.
--- NOTE | 2023-01-02 09:56 | EST_ITS ---
Patient Info Name: Js Donovan Age: 87 years : 1935 Gender: Male Ht: 64 in Wt: 152 lbs BSA: 1.78 m2 HR: 61 bpm BP: 147 / 84 mmHg Heart Rhythm: Sinus Rhythm Exam Date: 01/02/2023 11:18 AM Exam Location: [facility] Patient Status: Outpatient Admit Date: 01/02/2023 Staff Ordering Physician: Lamont Ruiz DO Attending Provider: Lamont Ruiz DO Exercise Technologist: Antonieta Castro CT Exercise Physician: Lamont Ruzi DO Exam Type: CA stress nat w NM Study Info Indications R06.09 - Other forms of dyspnea A regadenoson stress test was performed. Summary 1. 1. Negative lexiscan stress test for ischemic ST changes by ECG criteria. 2. 2. Baseline hypertension. 3. 3. Nuclear scan to follow and will be reported separately. Please correlate with it. 4. 4. Patient informed of the above results. Protocol: Lexiscan Stress ECG Details Stage: REST Duration (min): 2 min : 8 sec HR (bpm): 64 SBP (mmHg): 147 DBP (mmHg): 84 Stage: REST Duration (min): 9 min : 30 sec HR (bpm): 69 SBP (mmHg): 147 DBP (mmHg): 84 Stage: STAGE 1 Duration (min): 1 min : 0 sec HR (bpm): 78 SBP (mmHg): 145 DBP (mmHg): 62 Stage: RECOVERY Duration (min): 1 min : 0 sec HR (bpm): 77 SBP (mmHg): 145 DBP (mmHg): 62 Stage: RECOVERY Duration (min): 2 min : 0 sec HR (bpm): 96 SBP (mmHg): 145 DBP (mmHg): 62 Stage: RECOVERY Duration (min): 3 min : 0 sec HR (bpm): 97 SBP (mmHg): 149 DBP (mmHg): 70 Stage: RECOVERY Duration (min): 3 min : 4 sec HR (bpm): 96 SBP (mmHg): 149 DBP (mmHg): 70 Rest HR: 69 bpm Peak HR: 101 bpm Rest Sys BP: 147 mmHg Peak Sys BP: 149 mmHg Max Pred HR: 133 bpm % Max Pred HR: 76 % Target HR: 113 bpm Max RPP: 15,049 bpm*mmHg Termination Reason: Completed protocol Cardiac Symptoms: Shortness of breath Total Time: 1 min : 0 sec Rest [place] BP: 84 mmHg Peak [place] BP: 70 mmHg Total Dose: 0.4 mg Resting ECG Sinus rhythm, first degree AV block, IRBBB. Stress ECG No ST changes. Arrhythmias None. Report Signatures
== END 2023-01-02 09:54 | disposition home or self-care (01) ==
LOC: ANHCARD 09:53
PROVIDERS: PCP Nurse Practitioner; Visit Provider Internal Medicine Cardiovascular Disease
DX: R06.09 Other forms of dyspnea (principal)
CPT/HCPCS: 78452; 93017; A9502; J2785

== ENCOUNTER 2023-01-28 14:14 | Outpatient (CLI) | payer MEDICARE, SELFPAY ==
[2023-01-28 14:57] LABS: Basophils Absolute Auto 0.1 K/mm3 (0.0-0.1); Basophils Percent Auto 0.4 % (0.2-1.2); Eosinophils Absolute Auto 0.3 K/mm3 (0-0.3); Hematocrit 31.2 % (42.0-52.0); Hemoglobin 9.6 g/dL (14.0-18.0); Immature Granulocyte Absolute 0.07 K/mm3 (0.00-0.031); Immature Granulocyte Percent A 0.5 % (0-0.5); Lymphocytes Percent Auto 9.9 % (18.3-44.2); Mean Corpuscular HGB Conc 30.8 g/dl (32-36); Mean Corpuscular Hemoglobin 28.5 pg (26-34); Mean Corpuscular Volume 92.6 fl (80-100); Mean Platelet Volume 10.1 fl (7.4-10.4); Monocytes Absolute Auto 1.1 K/mm3 (0.1-0.6); Monocytes Percent Auto 8.3 % (2.6-8.5); Neutrophils Absolute Auto 10.3 K/mm3 (1.3-6.7); Neutrophils Percent Auto 78.9 % (45.5-73.1); Platelet Count Result 308 k/mm3 (150-375); Red Blood Count 3.37 M/mm3 (4.6-6.20); Red Cell Distribution Width 18.4 % (11.5-14.5); White Blood Count 13.1 K/mm3 (4.5-10.0)
== END 2023-01-28 14:15 | disposition home or self-care (01) ==
PROVIDERS: PCP Family Medicine; Visit Provider Family Medicine
DX: D64.9 Anemia, unspecified (principal)
CPT/HCPCS: 36415; 85025

== ENCOUNTER 2023-02-14 00:26 | Day surgery (SDC) | payer MEDICARE, SELFPAY ==
[2023-02-11 12:43] VITALS: BMI 29.9
--- NOTE | 2023-02-12 09:51 | SUR.PREOP ---
Patient called regarding upcoming procedure. Reviewed preop instructions, appointment times, and procedure prep.
[2023-02-14 08:56] VITALS: BP 144/80; PULSE 94; RESP 18; TEMP 36.4; O2SAT 99; BMI 28.1
[2023-02-14] MEDS: LACTATED RINGERS 1,000 ML 150 ML IV CONT (09:12)
--- NOTE | 2023-02-14 09:14 | WPDANESEPPF ---
Anes - Initial Pre Proc Eval Procedure: Operation Date: 02/14/23 09:30 Proposed Procedures p Colonoscopy - Luis Carlos Price MD Date/Time: 02/14/23 09:14 Surgeon: Luis Carlos Price MD Pre Op Diagnosis: Anemia,Melena Patient Data Age: 87 Gender: M Height: 1.55 m Weight: 67.6 kg Last Vital Signs Temp 97.6 F 02/14/23 08:56 Pulse 94 02/14/23 08:56 Resp 18 02/14/23 08:56 BP 144/80 H 02/14/23 08:56 Pulse Ox 99 02/14/23 08:56 O2 Del Method Room Air 02/14/23 08:56 Allergies Allergy/AdvReac Type Severity Reaction Status Date / Time ibuprofen Allergy Unknown Inside of Verified 02/14/23 08:54 mouth turn red Home Medications Medication Instructions Recorded Confirmed Type cholecalciferol (vitamin D3) 10 400 unit PO DAILY 02/05/19 02/14/23 History mcg (400 unit) capsule finasteride 5 mg tablet 5 mg PO DAILY #90 tabs 02/16/19 02/14/23 Rx multivitamin 1 tablet PO DAILY 03/16/21 02/14/23 History tamsulosin 0.4 mg capsule 0.4 mg PO DAILY 03/16/21 02/14/23 History omeprazole 40 mg capsule,delayed 40 mg PO DAILY #90 caps 04/03/22 02/14/23 Rx release diclofenac sodium 75 mg 75 mg PO BID #180 tabs 10/07/22 02/14/23 Rx tablet,delayed release amlodipine 5 mg tablet See Rx Instructions .Route 11/21/22 02/14/23 Rx .COMPLEX #90 tabs metoprolol succinate 25 mg 25 mg PO DAILY #90 tabs 11/21/22 02/14/23 Rx tablet,extended release 24 hr rosuvastatin 40 mg tablet (Crestor) 20 mg PO DAILY #90 tabs 11/21/22 02/14/23 Rx fluticasone 113 mcg-salmeterol 14 1 inh inhalation BID #1 ea 01/28/23 02/14/23 Rx mcg/actuation breath activated powdr (AirDuo RespiClick) ferrous sulfate 325 mg (65 mg 325 mg PO DAILY 02/11/23 02/14/23 History iron) tablet Patient hx anesthesia problems: none Family hx anesthesia problems: none Results Review: All pre-operative results and documents have been reviewed as part of the pre-operative evaluation. 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 Shortness of breath Surgical History Surgical History No pertinent past surgical history Family History Family History Sibling Family history of multiple sclerosis Patient's sister is Father Family history of diabetes mellitus in first degree relative Family history of type 2 diabetes mellitus Mother Patient's mother is Family history of heart disease in male family member before age 55 Other Diabetes mellitus Family history of allergic disorder Family history of kidney disease Family history of liver disease Hypertension Social History Social History Smoking packs per day: 1 Smoking cigarettes per day: 20.0 Years smoked: 4 Smoking pack-years: 4.00 Smoking status: Former smoker Tobacco type: cigarettes Second hand tobacco smoke exposure: No Smoking end date: 03/31/1957 Alcohol intake: never Substance use: never Substance use type: does not use Lack of Transportation: YES Lack of Food: Never True Current Housing: I Have Housing Concerned About Future Housing: No Difficulty Paying Gas/Electric Bills: No Difficulty Paying for Meds: No Currently Unemployed: No Education: High School Diploma/GED Difficulty w/ Childcare or Family Care: No Living arrangements: with family Additional living arrangements comments: lives with who has dementia and 2 adult sons who work director multimedia Occupation/Education: retired Gender iden
--- NOTE | 2023-02-14 09:20 | PM.HPGS ---
History of Present Illness History of Present Illness Consent: Risks, benefits, and alternatives have been discussed and questions answered. Patient agrees to proceed with procedure. Chief complaint: Anemia,Melena Narrative: Js Donovan is a 87 year old male Referred for colonoscopy. Patient apparently recently we had complaints of fatigue. Blood testing revealed patient had a normochromic, normocytic anemia. Stool for Hemoccult was found to be positive for blood. Patient reports that 3 days ago he did notice red blood tinged blood. For these reasons colonoscopy is advised. Review of records reveals the patient had previous colonoscopy with adenomatous colon polyp removed by Dr. Saelem in 2011. Patient also has a history of gastric polyps and a duodenal fistula. Patient denies any specific abdominal pain. He reports diarrhea stools attributed to a medication has improved on alteration of recent medication list. Review of Systems Review of Systems: Review of systems noncontributory. 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 Shortness of breath Surgical History Surgical History No pertinent past surgical history Family History Family History Sibling Family history of multiple sclerosis Patient's sister is Father Family history of diabetes mellitus in first degree relative Family history of type 2 diabetes mellitus Mother Patient's mother is Family history of heart disease in male family member before age 55 Other Diabetes mellitus Family history of allergic disorder Family history of kidney disease Family history of liver disease Hypertension Social History Social History Smoking packs per day: 1 Smoking cigarettes per day: 20.0 Years smoked: 4 Smoking pack-years: 4.00 Smoking status: Former smoker Tobacco type: cigarettes Second hand tobacco smoke exposure: No Smoking end date: 03/31/1957 Alcohol intake: never Substance use: never Substance use type: does not use Lack of Transportation: YES Lack of Food: Never True Current Housing: I Have Housing Concerned About Future Housing: No Difficulty Paying Gas/Electric Bills: No Difficulty Paying for Meds: No Currently Unemployed: No Education: High School Diploma/GED Difficulty w/ Childcare or Family Care: No Living arrangements: with family Additional living arrangements comments: lives with who has dementia and 2 adult sons who work maritime pilot Occupation/Education: retired Gender identity (if verbalized by the patient): Male Sexual Orientation (if Verbalized by the Patient): Straight or Heterosexual Spiritual care concerns: No Meds Home Medications and Allergies Home Medications Medication Instructions Recorded Confirmed Type cholecalciferol (vitamin D3) 10 400 unit PO DAILY 02/05/19 02/14/23 History mcg (400 unit) capsule finasteride 5 mg tablet 5 mg PO DAILY #90 tabs 02/16/19 02/14/23 Rx multivitamin 1 tablet PO DAILY 03/16/21 02/14/23 History tamsulosin 0.4 mg capsule 0.4 mg PO DAILY 03/16/21 02/14/23 History omeprazole 40 mg capsule,delayed 40 mg PO DAILY #90 caps 04/03/22 02/14/23 Rx release diclofenac sodium 75 mg 75 mg PO BID #180 tabs 10/07/22 02/14/23 Rx tablet,delayed release amlodipine 5 mg tablet See Rx Instructions .Route 11/21/22 02/14/23 Rx .COMPLEX #90 tabs metoprolol succinate 25 mg 25 mg PO DAILY #90 tabs 11/21/22 02/14/23 Rx t
[2023-02-14 09:58] VITALS: BP 118/57; PULSE 74; RESP 15; O2SAT 97
[2023-02-14 10:08] VITALS: BP 110/45; PULSE 75; RESP 21; O2SAT 98
[2023-02-14 10:21] VITALS: BP 110/71; PULSE 75; RESP 19; O2SAT 98
== END 2023-02-14 10:31 | disposition home or self-care (01) ==
PROVIDERS: PCP Family Medicine; Visit Provider Internal Medicine Gastroenterology
PROC: 0DJD8ZZ Inspection of Lower Intestinal Tract, Via Natural or Artificial Opening Endoscopic (ICD-10-PCS; CPT 45378; principal; 2023-02-14 09:30)
DX: D64.9 Anemia, unspecified (principal); K52.832 Lymphocytic colitis; K64.8 Other hemorrhoids; K57.30 Diverticulosis of large intestine without perforation or abscess without bleeding; I10 Essential (primary) hypertension; E78.2 Mixed hyperlipidemia; M15.9 Polyosteoarthritis, unspecified; M05.89 Other rheumatoid arthritis with rheumatoid factor of multiple sites; Z79.1 Long term (current) use of non-steroidal anti-inflammatories (NSAID); N40.0 Benign prostatic hyperplasia without lower urinary tract symptoms; Z87.891 Personal history of nicotine dependence; Z82.49 Family history of ischemic heart disease and other diseases of the circulatory system
CPT/HCPCS: 45380; 88305; J2371; J2704; J7120

== ENCOUNTER 2023-02-24 10:28 | Outpatient (CLI) | payer MEDICARE, SELFPAY ==
[2023-02-24 11:19] LABS: Basophils Percent Auto 0.4 % (0.2-1.2); Eosinophils Absolute Auto 0.3 K/mm3 (0-0.3); Eosinophils Percent Auto 2.5 % (0-4.4); Hemoglobin 9.7 g/dL (14.0-18.0); Immature Granulocyte Absolute 0.05 K/mm3 (0.00-0.031); Immature Granulocyte Percent A 0.5 % (0-0.5); Lymphocytes Absolute Auto 1.07 K/mm3 (0.9-3.2); Lymphocytes Percent Auto 9.8 % (18.3-44.2); Mean Corpuscular HGB Conc 30.3 g/dl (32-36); Mean Corpuscular Volume 92.2 fl (80-100); Mean Platelet Volume 9.4 fl (7.4-10.4); Monocytes Percent Auto 8.7 % (2.6-8.5); Neutrophils Absolute Auto 8.5 K/mm3 (1.3-6.7); Neutrophils Percent Auto 78.1 % (45.5-73.1); Platelet Count Result 290 k/mm3 (150-375); Red Blood Count 3.47 M/mm3 (4.6-6.20); Red Cell Distribution Width 17.6 % (11.5-14.5); White Blood Count 10.9 K/mm3 (4.5-10.0)
== END 2023-02-24 10:29 | disposition home or self-care (01) ==
PROVIDERS: PCP Family Medicine; Visit Provider Internal Medicine Gastroenterology
DX: D64.9 Anemia, unspecified (principal)
CPT/HCPCS: 36415; 85025; 87045; 87427; 87449; 89055

== ENCOUNTER 2023-03-05 12:32 | Outpatient (CLI) | payer MEDICARE, SELFPAY ==
--- NOTE | ~2023-03-05 | US_ITS ---
US soft tissue groin RT 03/05/2023 13:41 Indication: Right inguinal hernia. Procedure: High-resolution ultrasound of the right groin Comparison: CT dated 04/08/2013 Findings: There is discontinuity of the anterior musculature of the right inguinal location with exte nsion of heterogeneous soft tissue through the defect, consistent with right inguinal hernia. There i s possible bowel intrusion consider correlation with CT as clinically warranted. Impression: 1: Right inguinal hernia with possible bowel intrusion. Consider correlation with CT. Reviewed, dictated and finalized at location L. [facility] CARE CASE MANAGER Impression: 1: Right inguinal hernia with possible bowel intrusion. Consider correlation wi CT.
== END 2023-03-05 12:33 | disposition home or self-care (01) ==
PROVIDERS: PCP Family Medicine; Visit Provider Nurse Practitioner Family
DX: M65.351 Trigger finger, right little finger (principal); K40.90 Unilateral inguinal hernia, without obstruction or gangrene, not specified as recurrent
CPT/HCPCS: 76882

== ENCOUNTER 2023-04-14 01:10 | Day surgery (SDC) | payer MEDICARE, SELFPAY ==
[2023-04-08 14:58] VITALS: BMI 26.5
--- NOTE | 2023-04-08 15:45 | PC.NURSE ---
Report to the Outpatient Waiting Room, entrance under the green pavilion located off [facility], at time __7:00AM on date __04/14/23 . Planned Procedure Time: ___9:00AM . Time changes happen often and if your time is changed the preop area will call you the afternoon before. - You and your visitor will be asked to self-screen and do not enter if you have any COVID symptoms. - A mask is optional within the hospital at this time. Patients may have clear liquids (water, carbonated beverages, clear teas, apple juice) until 3 hours prior to surgery with a maximum of 20 ounces. - No food from midnight until time of surgery. Take the following medications with a SIP of water the morning of surgery: ____AMLODIPINE, METOPROLOL DO NOT STOP ANY OF YOUR OTHER PRESCRIPTION MEDICATIONS PRIOR TO SURGERY ?EXCEPT THE FOLLOWING Medications to discontinue per physician __HOLD ALL VITAMINS/SUPPLEMENTS 3 DAYS PRE-OP PER ANESTHESIA- LAST DOSE 04/10/23 HOLDING ORENCIA INJECTION 1 WEEK PRE-OP- LAST DOSE 04/06/23 Please no make-up, nail togolese, hairspray, perfume, deodorant, or body powder the day of surgery. No jewelry (including any body piercings) or valuables the day of surgery, leave them at home. Please take a shower or bath the night before, or the morning of, surgery with an antibacterial soap. Wear comfortable, loose fitting clothing. Children are encouraged to wear pajamas. - Jewelry must be removed prior to entering the operating room. Rings and piercings that are not removed may be cut off. - The hospital will not accept responsibility for valuables. - Please leave all valuables, including medications, at home the day of surgery. If you are going home after surgery, a licensed vending route driver must drive you home. - NO public transportation without another adult if you receive anesthesia. - We recommend that an adult stay with you for 24 hours following discharge. - We also recommend that you do not drive, make important decision, drink alcoholic beverages, or take any drugs that were not prescribed by your health care provider for at least 24 hours after your discharge time. For Pediatric surgeries, we recommend two adults accompany the child home. Follow any additional instructions given to you from your surgeon. If you or anyone in your household have experienced Covid symptoms in the past week, please notify your surgeon or the nurse liaison at the phone number below for possible testing. Telephone instructions given to _PATIENT AND SISTER-KIM and asked if any additional questions and then verbalized understanding. Patient advised to call surgeon office or pre surgery nurse liaison [phone] if any additional questions.
[2023-04-14] MEDS: ACETAMINOPHEN 500 MG TABLET 1000 MG PO (07:45)
[2023-04-14] MEDS: KETOROLAC 15 MG/ML VIAL (*BKC) IV PUSH (07:48)
[2023-04-14 07:50] VITALS: BP 149/66; PULSE 70; RESP 16; TEMP 36.8; O2SAT 99
[2023-04-14] MEDS: LACTATED RINGERS 1,000 ML 30 ML IV CONT (07:50)
--- NOTE | 2023-04-14 08:32 | WPDANESEPPF ---
Anes - Initial Pre Proc Eval Procedure: Operation Date: 04/14/23 09:00 Proposed Procedures p Open Right Inguinal Hernia Repair with Mesh - Jeff Flores MD Date/Time: 04/14/23 08:32 Surgeon: Jeff Flores MD Pre Op Diagnosis: Reducible Rt Ing Hernia Patient Data Age: 87 Gender: M Height: 1.6 m Weight: 64.8 kg Last Vital Signs Temp 98.2 F 04/14/23 07:50 Pulse 70 04/14/23 07:50 Resp 16 04/14/23 07:50 BP 149/66 H 04/14/23 07:50 Pulse Ox 99 04/14/23 07:50 O2 Del Method Room Air 04/14/23 07:50 Allergies Allergy/AdvReac Type Severity Reaction Status Date / Time ibuprofen AdvReac Unknown Inside of Verified 04/14/23 07:22 mouth turn red Home Medications Medication Instructions Recorded Confirmed Type finasteride 5 mg tablet 5 mg PO DAILY #90 tabs 02/16/19 04/08/23 Rx multivitamin 1 tablet PO DAILY 03/16/21 04/08/23 History tamsulosin 0.4 mg capsule 0.4 mg PO DAILY 03/16/21 04/08/23 History omeprazole 40 mg capsule,delayed 40 mg PO DAILY #90 caps 04/03/22 04/08/23 Rx release metoprolol succinate 25 mg 25 mg PO DAILY #90 tabs 11/21/22 04/08/23 Rx tablet,extended release 24 hr rosuvastatin 40 mg tablet (Crestor) 20 mg PO DAILY #90 tabs 11/21/22 04/08/23 Rx ferrous sulfate 325 mg (65 mg 325 mg PO DAILY 02/11/23 04/08/23 History iron) tablet abatacept 125 mg/mL subcutaneous 125 mg subcut WEEKLY 04/03/23 04/08/23 History auto-injector (Orencia ClickJect) acetaminophen 500 mg tablet 1,000 mg PO Q6H PRN Pain 04/08/23 04/08/23 History (Acetaminophen Extra Strength) amlodipine 5 mg tablet 2.5 mg PO QAM 04/08/23 04/08/23 History cholecalciferol (vitamin D3) 25 25 mcg PO DAILY 04/08/23 04/08/23 History mcg (1,000 unit) tablet omega 0-tho-vuq-fish oil 1,200 mg 1 cap PO BID 04/08/23 04/08/23 History (144 mg-216 mg) capsule (Fish Oil) vit C 250 mg-vit E 90 mg-zinc 40 1 tablet PO BID 04/08/23 04/08/23 History mg-copper 1 [id number] capsule (PreserVision AREDS-2) fluticasone 232 mcg-salmeterol 14 1 inh inhalation BID #1 ea 04/09/23 Rx mcg/actuation breath activated powdr (AirDuo RespiClick) Patient hx anesthesia problems: none Family hx anesthesia problems: none Results Review: All pre-operative results and documents have been reviewed as part of the pre-operative evaluation. 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 Shortness of breath Surgical History Surgical History History of cholecystectomy History of knee surgery 2008 History of surgery on arm Family History Family History Sibling Family history of multiple sclerosis Patient's sister is Father Family history of diabetes mellitus in first degree relative Family history of type 2 diabetes mellitus Mother Patient's mother is Family history of heart disease in male family member before age 55 Other Diabetes mellitus Family history of allergic disorder Family history of kidney disease Family history of liver disease Hypertension Social History Social History Smoking packs per day: 0.5 Smoking cigarettes per day: 10.0 Years smoked: 5 Smoking pack-years: 2.50 Smoking status: Former smoker Tobacco type: cigarettes Second hand tobacco smoke exposure: No Smoking end date: 03/31/74 Alcohol intake: never Substance use: never Substance use type: does not use Lack of Transportation: YES Lack of Food: Never True Current Housing
--- NOTE | 2023-04-14 08:37 | PM.IMHP ---
H&P: HPI History of Present Illness Date/Time: 04/14/23 08:37 Chief Complaint: Right inguinal hernia Narrative: Js is a 87 y/o male who presents to the office accompanied by his sister at the request of Joanne Dennis APRN for evaluation of a right inguinal hernia. Patient states for the past two months he has been experiencing right groin pain. He states this pain started happening after he lifted a piece of his 's heavy medical equipment. He reports a small bulge in the right groin. He denies any issues with bowel habits or with urination. He has a past history of left inguinal hernia repair in 2011. Right groin ultrasound on 03/06/23 revealed a right inguinal hernia with possible bowel intrusion. Review of Systems Review of Systems: The remainder of the review of systems to include constitutional, HEENT, cardiovascular, respiratory, GI, , integumentary, musculoskeletal, endocrine, immunologic, hematologic, psychiatric, and neurologic are all negative except for which is mentioned above in the HPI. 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 Shortness of breath Surgical History Surgical History History of cholecystectomy History of knee surgery 2008 History of surgery on arm Family History Family History Sibling Family history of multiple sclerosis Patient's sister is Father Family history of diabetes mellitus in first degree relative Family history of type 2 diabetes mellitus Mother Patient's mother is Family history of heart disease in male family member before age 55 Other Diabetes mellitus Family history of allergic disorder Family history of kidney disease Family history of liver disease Hypertension Social History Social History Smoking packs per day: 0.5 Smoking cigarettes per day: 10.0 Years smoked: 5 Smoking pack-years: 2.50 Smoking status: Former smoker Tobacco type: cigarettes Second hand tobacco smoke exposure: No Smoking end date: 03/31/74 Alcohol intake: never Substance use: never Substance use type: does not use Lack of Transportation: YES Lack of Food: Never True Current Housing: I Have Housing Concerned About Future Housing: No Difficulty Paying Gas/Electric Bills: No Difficulty Paying for Meds: No Currently Unemployed: No Education: High School Diploma/GED Difficulty w/ Childcare or Family Care: No Living arrangements: with family Additional living arrangements comments: ([place]) AND 2 GROWN SONS Occupation/Education: retired Gender identity (if verbalized by the patient): Male Sexual Orientation (if Verbalized by the Patient): Straight or Heterosexual Spiritual care concerns: No Meds Home Medications and Allergies Home Medications Medication Instructions Recorded Confirmed Type finasteride 5 mg tablet 5 mg PO DAILY #90 tabs 02/16/19 04/08/23 Rx multivitamin 1 tablet PO DAILY 03/16/21 04/08/23 History tamsulosin 0.4 mg capsule 0.4 mg PO DAILY 03/16/21 04/08/23 History omeprazole 40 mg capsule,delayed 40 mg PO DAILY #90 caps 04/03/22 04/08/23 Rx release metoprolol succinate 25 mg 25 mg PO DAILY #90 tabs 11/21/22 04/08/23 Rx tablet,extended release 24 hr rosuvastatin 40 mg tablet (Crestor) 20 mg PO DAILY #90 tabs 11/21/22 04/08/23 Rx ferrous sulfate 325 mg (65 mg 325 mg PO DAILY 02/11/23 04/08/23 History iron) tablet abatacept 125 mg/mL subcutaneous 125 mg subcut WEEKLY 04/03/23
--- NOTE | 2023-04-14 08:41 | WPDHPUPDATE1 ---
History and Physical Update Update Date/Time: 04/14/23 08:41 History and Physical has been reviewed, including an updated exam of the patient. There are NO changes in the patient's condition. Risks, benefits, and alternatives have been discussed and questions answered. Patient agrees to proceed with procedure.
[2023-04-14] MEDS: ceFAZolin 2 GM/D5W 50 ML 2 GM/50 ML BAG IVPB (08:53)
[2023-04-14] MEDS: LIDO 1%/EPINEPHRINE 1:100,000 50 ML VIAL 20 ML INFILTRATE (09:20)
[2023-04-14 10:28] VITALS: BP 102/52; PULSE 70; RESP 16; O2SAT 100
--- NOTE | 2023-04-14 10:29 | W.PM.PROC2 ---
Procedure Note - Detailed Date of Procedure 04/14/23 Pre-op Diagnosis Reducible Rt Ing Hernia Post-op Diagnosis Same (Reducible indirect right inguinal hernia) Procedure Performed Open right inguinal hernia repair with Ultrapro hernia system mesh. Surgeon Jeff Flores MD Wire Annealer TATO Chaudhry Anesthesia MAC and Local Indications Patient is an 87-year-old gentleman presented with enlarging right groin bulge which is causing him to have some mild discomfort. It was reducible. He presents now for an open right inguinal hernia repair with mesh reinforcement. Findings Large indirect right inguinal hernia. Hernia was reducible. Description of Procedure After informed consent was obtained patient brought to the operating room was placed supine position and then IV sedation was administered by anesthesia. The bilateral lower abdomen and bilateral groins were then prepped and draped usual sterile fashion. Time-out was then performed correctly identifying the patient as well as procedure to be performed. Site marking was verified as was the fact the patient was given some perioperative IV antibiotics. I then anesthetized the area the right lower groin region about 2cm above the palpated right pubic tubercle 1% lidocaine mixed with 0.5% Marcaine utilizing some epinephrine. A transverse incision was then made this area the scalpel dissection was then carried down through the subcutaneous tissues and Carey's fascia electrocautery. The external oblique aponeurosis was encountered and then the fatty tissue was dissected off the external oblique aponeurosis and then identified the external ring. More local anesthetic mixture was then injected underneath the external oblique aponeurosis. I then incised the external oblique aponeurosis along the direction of its fibers and opened widely out through the external ring utilized electrocautery. I then the external oblique aponeurosis from the underlying internal oblique muscle fibers and cremasteric muscle fibers utilized electrocautery. I then with blunt finger dissection circled the cord structures at the pubic tubercle and placed a [place] drain around them to aid with retraction. I then further divided cremasteric muscle fibers to further mobilize the cord. I looked at the floor of the inguinal canal it was intact without evidence of a direct inguinal hernia. The internal ring was dilated and then I explored the cord dividing some cremasteric muscle fibers and identified an indirect inguinal hernia sac. This was dissected free of the vas deferens and testicular vessels without injuring those 2 structures. The hernia sac was dissected up to the level of the internal ring and then reduced back into the preperitoneal space through the dilated internal ring. Retractors then placed the dilated internal ring holding the inferior epigastric vessels inferiorly. Through the dilated internal ring and then bluntly with finger dissection and sponge dissection dissected out the whole myopectineal space space. Once this was done I then chose a large piece of Ultrapro hernia system mesh for the repair. The a circular underlay portion of mesh was placed through the dilated internal ring into the preperitoneal space deep to the inferior epigastric vessels and spinal widely the cover the whole myopectineal orifice. Excellent critical connecting portion of the mesh came out through the dilated internal ring the overlay portion of mesh was laid out over the floor of the inguinal canal. The overlay mesh was then secured to the tissues around the pubic tubercle utilizing interrupted 2-0 Vicryl sutures. A slit was then cut in the overlay patch, 8 the cord structures in the edge of the patch were reapproximated around the cord utilizing interrupted 2-0 Vicryl sutures. The tail the patch was intact underneath the external oblique aponeurosis proximally. I then further secured the overlay patch to the tissues medial consisti
[2023-04-14 10:50] VITALS: BP 112/51; PULSE 63; RESP 16; O2SAT 96
[2023-04-14 11:20] VITALS: BP 115/60; PULSE 66; RESP 16
[2023-04-14 11:50] VITALS: BP 129/71; PULSE 68; RESP 16
== END 2023-04-14 12:15 | disposition home or self-care (01) ==
PROVIDERS: PCP Family Medicine; Visit Provider Surgery
PROC: (CPT 49505; principal; 2023-04-14 09:00)
DX: K40.90 Unilateral inguinal hernia, without obstruction or gangrene, not specified as recurrent (principal); I10 Essential (primary) hypertension; E78.2 Mixed hyperlipidemia; N40.0 Benign prostatic hyperplasia without lower urinary tract symptoms; M05.89 Other rheumatoid arthritis with rheumatoid factor of multiple sites; M15.9 Polyosteoarthritis, unspecified; Z87.891 Personal history of nicotine dependence
CPT/HCPCS: 49505; A9270; C1781; J0690; J1885; J2405; J2704; J3010; J7120

== ENCOUNTER 2024-03-05 14:08 | Outpatient (CLI) | payer MEDICARE, SELFPAY | END 2024-03-05 14:09 | disposition home or self-care (01) | LOC: ANHCARD 14:11 | PROVIDERS: PCP Family Medicine; Visit Provider Internal Medicine Cardiovascular Disease | DX: I47.29 Other ventricular tachycardia (principal); K40.90 Unilateral inguinal hernia, without obstruction or gangrene, not specified as recurrent | CPT/HCPCS: 93242 ==